=== PATIENT | male | born 1985 | race Caucasian/White ===

== ENCOUNTER 2019-06-26 17:26 | Emergency (ER) | payer OTHER ==
[~2019-06-26] VITALS: Ht 167.6 cm; Wt 79.5 kg
[~2019-06-26 17:26] MED LIST: NORT10CA2 PO
[2019-06-26 17:30] VITALS: Ht 167.6 cm; Wt 79.5 kg
[2019-06-26] MEDS ORDERED: LORAZEPAM 2 MG INJ IV ONE (17:30)
[2019-06-26] MEDS ORDERED: NITROGLYCERIN (SL) 0.4 MG TAB SL PRN (17:30)
[2019-06-26] MEDS ORDERED: NITROGLYCERIN 2% 1 GM OINT PKT TD STA (17:30)
[2019-06-26] MEDS ORDERED: POTASSIUM CHLORIDE (SR) 20 MEQ TAB PO STA (18:58)
[2019-06-26 20:00] VITALS: BP 120/86; PULSE 99; RESP 22
== END 2019-06-26 20:32 | disposition home or self-care (01) ==
LOC: E/R 17:26
DX: R07.9 Chest pain, unspecified (principal)
CPT/HCPCS: 36415; 71045; 80048; 84484; 85025; 93005; 96374; J2060; Z7502; Z7610